=== PATIENT | male | born 1970 | race Caucasian/White ===

== ENCOUNTER 2025-05-17 22:23 | Inpatient (IN) | payer MEDICAID ==
[~2025-05-17] VITALS: Ht 162.6 cm; Wt 78.0 kg
[2025-05-17 22:26] VITALS: O2SAT 99
[2025-05-17 23:24] LABS: BASOPHILS % 1.1 % (0.0-2.0); EOSINOPHILS % 5.1 % (0.0-5.0); HEMATOCRIT. 30.4 % (42.0-52.0); HEMOGLOBIN. 10.5 g/dL (14.0-18.0); LYMPHOCYTES % 14.4 % (20.0-50.0); MEAN PLATELET VOLUME 10.4 fl (7.4-10.4); MONOCYTES % 8.7 % (2.0-8.0); NEUTROPHILS % 70.7 % (40.0-76.0); PLATELET 238 x1000/uL (130-400); RED BLOOD CELL COUNT 3.52 mill/uL (4.7-6.1); RED CELL DISTRIBUTION WIDTH 13.1 % (11.6-14.6)
[2025-05-17 23:33] LABS: CREATININE 1.8 mg/dL (0.6-1.3); UREA NITROGEN BLOOD 20 mg/dL (9-23)
[2025-05-17 23:34] LABS: PROTEIN TOTAL 6.1 g/dL (6.0-8.3)
[2025-05-17 23:35] LABS: ASPARTATE AMINOTRANSFERASE 17 IU/L (<34); BILIRUBIN DIRECT < 0.1 mg/dL (<=3.0); BILIRUBIN TOTAL 0.3 mg/dL (0.1-1.0); TROPONIN I HIGH SENSITIVITY 6 ng/L (3.0-53)
[2025-05-17 23:56] LABS: INR 1.0
[2025-05-18 00:50] LABS: TROPONIN I HIGH SENSITIVITY 7 ng/L (3.0-53)
[2025-05-18] MEDS: NITROGLYCERIN 50MG PREMIX 250 ML IV ONE (01:24)
[2025-05-18] MEDS: NITROGLYCERIN 0.4MG TABLET SL SL ONE (01:29)
[2025-05-18] MEDS: LABETALOL 5MG/ML 4ML INJ IV NR (01:29)
[2025-05-18 02:36] LABS: TROPONIN I HIGH SENSITIVITY 7 ng/L (3.0-53)
[2025-05-18 03:02] LABS: CLARITY URINE CLEAR (CLEAR); COLOR URINE YELLOW (YELLOW); GLUCOSE URINE 2+ (NEGATIVE); KETONES URINE NEGATIVE (NEGATIVE); LEUKOCYTE ESTERASE URINE NEGATIVE (NEGATIVE); NITRITE URINE NEGATIVE (NEGATIVE); OCCULT BLOOD URINE TRACE (NEGATIVE); PH URINE 6.0 (4.5-8.0); PROTEIN URINE 3+ (NEGATIVE); SPECIFIC GRAVITY URINE 1.011 (1.005-1.030); UROBILINOGEN URINE 0.2 E.U./dL (0.2-1.0)
[2025-05-18 03:23] LABS: SQUAMOUS EPITHELIAL CELL URINE FEW /lpf (RARE/1+)
[2025-05-18 03:24] LABS: BACTERIA URINE TRACE
[2025-05-18 05:55] VITALS: BP 165/87; PULSE 77; RESP 16; TEMP 36.4; O2SAT 97
[2025-05-18] MEDS: ACETAMINOPHEN 325MG TABLET PO PRN (06:51)
[2025-05-18 08:14] VITALS: BP 154/80; PULSE 78; RESP 18; TEMP 36.8; O2SAT 78
[2025-05-18] MEDS ORDERED: DEXTROSE 50% WATER 50ML SYRINGE IV PRN ×2 (08:15→10:30)
[2025-05-18] MEDS ORDERED: MAGNESIUM/ALUMINUM HYDROXIDE/SIMETHICONE 30ML UDC PO PRN (08:15)
[2025-05-18] MEDS ORDERED: ONDANSETRON HCL 4MG/2ML INJ IV PRN (08:15)
[2025-05-18] MEDS: LISINOPRIL 10MG TABLET PO SCH (09:24)
[2025-05-18] MEDS: AMLODIPINE 5MG TABLET PO SCH (09:25)
[2025-05-18] MEDS: ASPIRIN 81MG EC TABLET PO SCH (09:25)
[2025-05-18] MEDS: ENOXAPARIN 40MG/0.4ML SYR SUBCUT SCH (09:30)
[2025-05-18] MEDS ORDERED: REGADENOSON 0.4 MG/5 ML IV NR (09:45)
[2025-05-18 10:03] VITALS: BP 154/80; PULSE 78; RESP 20; TEMP 36.8072
[2025-05-18] MEDS ORDERED: IBUP-1455 PO (10:48)
[2025-05-18] MEDS ORDERED: METF-416 PO (10:48)
[2025-05-18] MEDS ORDERED: ATOR40TA70 PO (10:48)
[2025-05-18] MEDS ORDERED: LOSA50TA41 PO (10:48)
[2025-05-18] MEDS ORDERED: TOPUD PO (10:48)
[2025-05-18] MEDS ORDERED: AMLO5TAB88 PO (10:48)
[2025-05-18 12:00] VITALS: BP 165/85; PULSE 78; RESP 19; TEMP 36.7; O2SAT 100
[2025-05-18] MEDS ORDERED: BLOOD SUGAR DIAGNOSTIC STRIP TEST SCH (12:10)
[2025-05-18] MEDS: ISOSORBIDE MONONITRATE 30MG TABLET SR 24HR PO SCH (12:19)
[2025-05-18] MEDS: BLOOD SUGAR DIAGNOSTIC STRIP TEST SCH (12:23)
[2025-05-18] MEDS: CEFTRIAXONE 1GM/50ML 50 ML IV SCH (12:24)
[2025-05-18] MEDS: INSULIN LISPRO 100 UNITS/ML SUBCUT SCH (12:30)
[2025-05-18] MEDS ORDERED: INSULIN LISPRO 100 UNITS/ML SUBCUT SCH (12:40)
[2025-05-18 13:11] LABS: BASOPHILS % 0.3 % (0.0-2.0); EOSINOPHILS % 1.5 % (0.0-5.0); HEMATOCRIT. 32.1 % (42.0-52.0); HEMOGLOBIN. 11.1 g/dL (14.0-18.0); LYMPHOCYTES % 10.3 % (20.0-50.0); MEAN PLATELET VOLUME 10.9 fl (7.4-10.4); MONOCYTES % 8.0 % (2.0-8.0); NEUTROPHILS % 79.9 % (40.0-76.0); PLATELET 247 x1000/uL (130-400); RED BLOOD CELL COUNT 3.67 mill/uL (4.7-6.1); RED CELL DISTRIBUTION WIDTH 13.3 % (11.6-14.6)
[2025-05-18 13:28] LABS: CREATININE 1.5 mg/dL (0.6-1.3); TRIGLYCERIDE 147.0 mg/dL (0-150); UREA NITROGEN BLOOD 14.0 mg/dL (9-23)
[2025-05-18 13:29] LABS: LDL CHOLESTEROL 86.0 mg/dL (5-100)
[2025-05-18 13:30] LABS: TROPONIN I HIGH SENSITIVITY 6 ng/L (3.0-53)
[2025-05-18 16:10] VITALS: BP 142/68; PULSE 78; RESP 18; TEMP 36.7; O2SAT 97
[2025-05-18] MEDS: EMPAGLIFLOZIN 10MG TABLET PO SCH (16:43)
[2025-05-18] MEDS: HYDROCODONE/ACETAMINOPHEN 5/325MG TABLET PO PRN (16:44)
[2025-05-18] MEDS ORDERED: NALOXONE HCL 0.4MG/ML VIAL IV PRN (16:45)
[2025-05-18 20:00] VITALS: BP 141/82; PULSE 76; RESP 20; TEMP 36.6; O2SAT 96
[2025-05-18 20:08] LABS: *AMPHETAMINES SCREEN URINE NEGATIVE (NEGATIVE); *BARBITURATES SCREEN URINE NEGATIVE (NEGATIVE); *BENZODIAZEPINES SCREEN URINE NEGATIVE (NEGATIVE); *COCAINE SCREEN URINE NEGATIVE (NEGATIVE); METHADONE URINE SCREEN NEGATIVE (NEGATIVE)
[2025-05-18 20:09] LABS: CANNABINOID URINE SCREEN NEGATIVE (NEGATIVE); CREATININE URINE RANDOM 74.4 mg/dL; ECSTASY MDMA SCREEN URINE NEGATIVE (NEGATIVE); OPIATES URINE SCREEN NEGATIVE (NEGATIVE); PHENCYCLIDINE URINE SCREEN NEGATIVE (NEGATIVE)
[2025-05-18 20:14] LABS: PROTEIN URINE RANDOM 350 mg/dL
[2025-05-18] MEDS ORDERED: ZOLPIDEM TARTRATE 5MG TABLET PO PRN (21:00)
[2025-05-19] VITALS: BP 113/67; PULSE 82; RESP 20; TEMP 36.8; O2SAT 95
[2025-05-19 04:00] VITALS: BP 140/82; PULSE 75; RESP 20; TEMP 36.5; O2SAT 95
[2025-05-19 06:12] LABS: BASOPHILS % 0.3 % (0.0-2.0); EOSINOPHILS % 2.5 % (0.0-5.0); HEMATOCRIT. 29.2 % (42.0-52.0); HEMOGLOBIN. 10.3 g/dL (14.0-18.0); LYMPHOCYTES % 8.2 % (20.0-50.0); MEAN PLATELET VOLUME 10.1 fl (7.4-10.4); MONOCYTES % 6.5 % (2.0-8.0); NEUTROPHILS % 82.5 % (40.0-76.0); PLATELET 238 x1000/uL (130-400); RED BLOOD CELL COUNT 3.39 mill/uL (4.7-6.1); RED CELL DISTRIBUTION WIDTH 12.9 % (11.6-14.6)
[2025-05-19 06:21] LABS: CREATININE 1.4 mg/dL (0.6-1.3)
[2025-05-19 06:22] LABS: UREA NITROGEN BLOOD 12.0 mg/dL (9-23)
[2025-05-19 06:23] LABS: ASPARTATE AMINOTRANSFERASE 12 IU/L (<34); PROTEIN TOTAL 6.1 g/dL (6.0-8.3)
[2025-05-19 06:24] LABS: BILIRUBIN DIRECT < 0.1 mg/dL (<=3.0); BILIRUBIN TOTAL 0.4 mg/dL (0.1-1.0)
[2025-05-19] MEDS: PANTOPRAZOLE 40MG DR TABLET PO SCH (06:27)
[2025-05-19 08:00] VITALS: BP 151/85; PULSE 75; RESP 20; TEMP 36.4; O2SAT 100
[2025-05-19] MEDS ORDERED: REGADENOSON 0.4 MG/5 ML IV ONE (09:23)
[2025-05-19 12:00] VITALS: BP 169/60; PULSE 81; RESP 20; TEMP 36.6; O2SAT 100
[2025-05-19 16:00] VITALS: BP 128/68; PULSE 84; RESP 20; TEMP 36.6; O2SAT 98
[2025-05-19 20:00] VITALS: BP 138/79; PULSE 71; RESP 18; TEMP 36.4; O2SAT 97
[2025-05-20] VITALS (8 sets, daily range): BP systolic 132–161; BP diastolic 70–92; PULSE 72–88; RESP 16–20; TEMP 36.5–37.1; O2SAT 96–100
[2025-05-20] MEDS: HYDRALAZINE 20MG/ML VIAL IV PRN (20:03)
[2025-05-21 03:35] VITALS: BP 127/78; PULSE 75; RESP 17; TEMP 36.7; O2SAT 99
[2025-05-21 08:00] VITALS: BP 151/81; PULSE 74; RESP 19; TEMP 36.5; O2SAT 100
[2025-05-21 12:00] VITALS: BP 131/76; PULSE 79; RESP 19; TEMP 36.6; O2SAT 98
[2025-05-21 13:19] LABS: CREATININE 1.8 mg/dL (0.6-1.3); UREA NITROGEN BLOOD 23.0 mg/dL (9-23)
[2025-05-21 16:00] VITALS: BP 147/80; PULSE 77; RESP 19; TEMP 36.7; O2SAT 97
[2025-05-21 20:00] VITALS: BP 123/72; PULSE 87; RESP 19; TEMP 36.4; O2SAT 98
[2025-05-22] VITALS: BP 133/79; PULSE 75; RESP 19; TEMP 36.4; O2SAT 97
[2025-05-22] MEDS: ACETAMINOPHEN 325MG TABLET PO PRN (02:57)
[2025-05-22 04:00] VITALS: BP 138/81; PULSE 77; RESP 19; TEMP 36.8; O2SAT 98
[2025-05-22 08:00] VITALS: BP 153/86; PULSE 78; RESP 19; TEMP 37.1; O2SAT 98
[2025-05-22 12:00] VITALS: BP 133/72; PULSE 73; RESP 19; TEMP 36.4; O2SAT 99
[2025-05-22 16:00] VITALS: BP 143/72; PULSE 79; RESP 18; TEMP 36.7; O2SAT 99
[2025-05-22 20:00] VITALS: BP 161/93; PULSE 83; RESP 18; TEMP 36.3; O2SAT 99
[2025-05-23] VITALS: BP 151/87; PULSE 72; RESP 18; TEMP 36.1; O2SAT 99
[2025-05-23 04:00] VITALS: BP 139/74; PULSE 84; RESP 18; TEMP 36.3; O2SAT 98
[2025-05-23 08:00] VITALS: BP 147/79; PULSE 80; RESP 18; TEMP 36.6; O2SAT 97
[2025-05-23] MEDS ORDERED: EMPA10TA PO (08:43)
[2025-05-23 09:55] VITALS: BP 147/79; PULSE 80; RESP 18; TEMP 97.9
== END 2025-05-23 10:40 | disposition home or self-care (01) | DRG 199 ==
LOC: ER 22:23 → 8WST 05-18 00:35 → EDBEDREQDT 05-18 00:48 → EDBEDREQSVC 05-18 00:48 → EDBEDREQTM 05-18 00:48 → EDBEDREQ 05-18 00:48 → EDBEDREQSVC 05-18 02:21 → ENRESERV 05-18 04:53
PROVIDERS: ADMIT Internal Medicine; ATTEND Internal Medicine
DX: I16.0 Hypertensive urgency (principal); N17.0 Acute kidney failure with tubular necrosis; S92.002A Unspecified fracture of left calcaneus, initial encounter for closed fracture; D63.1 Anemia in chronic kidney disease; E11.22 Type 2 diabetes mellitus with diabetic chronic kidney disease; I12.9 Hypertensive chronic kidney disease with stage 1 through stage 4 chronic kidney disease, or unspecified chronic kidney disease; N18.30 Chronic kidney disease, stage 3 unspecified; I20.0 Unstable angina; E11.65 Type 2 diabetes mellitus with hyperglycemia; E78.00 Pure hypercholesterolemia, unspecified; I25.9 Chronic ischemic heart disease, unspecified; X58.XXXA Exposure to other specified factors, initial encounter; Y93.89 Activity, other specified; Y92.89 Other specified places as the place of occurrence of the external cause; Y99.8 Other external cause status; Z79.84 Long term (current) use of oral hypoglycemic drugs; Z91.148 Patient's other noncompliance with medication regimen for other reason
CPT/HCPCS: 36415; 71045; 73030; 73590; 73610; 73700; 76770; 78452; 80048; 80061; 80076; 80305; 81003; 82570; 82962; 83036; 83735; 83880; 84156; 84484; 85025; 93005; 93017; 93306; 99285; A9500; J0360; J0696; J1650; J1815; J2785; J3490

== ENCOUNTER 2025-05-26 19:58 | Emergency (ER) | payer MEDICAID ==
[~2025-05-26] VITALS: Ht 167.6 cm; Wt 73.0 kg
[~2025-05-26 19:58] MED LIST: AMLO5TAB88 PO; ATOR40TA70 PO; EMPA10TA PO; IBUP-1455 PO; LOSA50TA41 PO; METF-416 PO; TOPUD PO
[2025-05-26 20:07] VITALS: TEMP 98.8; O2SAT 100
[2025-05-26] MEDS ORDERED: CLONIDINE 0.2MG TABLET PO ONE (20:30)
[2025-05-26] MEDS: CLONIDINE 0.1MG TABLET PO NR (20:59)
[2025-05-26 21:08] LABS: BASOPHILS % 0.6 % (0.0-2.0); EOSINOPHILS % 3.8 % (0.0-5.0); HEMATOCRIT. 30.9 % (42.0-52.0); HEMOGLOBIN. 10.5 g/dL (14.0-18.0); LYMPHOCYTES % 19.9 % (20.0-50.0); MEAN PLATELET VOLUME 9.5 fl (7.4-10.4); MONOCYTES % 6.7 % (2.0-8.0); NEUTROPHILS % 69.0 % (40.0-76.0); PLATELET 347 x1000/uL (130-400); RED BLOOD CELL COUNT 3.58 mill/uL (4.7-6.1); RED CELL DISTRIBUTION WIDTH 12.9 % (11.6-14.6)
[2025-05-26 21:28] LABS: CREATININE 1.8 mg/dL (0.6-1.3); UREA NITROGEN BLOOD 32.0 mg/dL (9-23)
[2025-05-26 22:03] LABS: TROPONIN I HIGH SENSITIVITY 7 ng/L (3.0-53)
[2025-05-26 23:24] LABS: TROPONIN I HIGH SENSITIVITY 7 ng/L (3.0-53)
[2025-05-27 00:24] VITALS: BP 138/82; PULSE 77; RESP 12; O2SAT 99
== END 2025-05-27 00:24 | disposition home or self-care (01) ==
LOC: ER 19:58 → CMPBEDREQ 05-27 07:33
DX: I10 Essential (primary) hypertension (principal); E78.00 Pure hypercholesterolemia, unspecified; E11.9 Type 2 diabetes mellitus without complications; Z79.899 Other long term (current) drug therapy
CPT/HCPCS: 36415; 71045; 80048; 80320; 84484; 85025; 93005; 99285; G0480